=== PATIENT | female | born 1970 | race Caucasian/White ===

== ENCOUNTER 2018-06-26 08:20 | Emergency (ER) | payer BC ==
[~2018-06-26] VITALS: Ht 162.6 cm; Wt 113.6 kg
[~2018-06-26 08:20] MED LIST: AMBIEN5 MG PO; BIOTIN1 MG PO; BUSPIRONE5 MG PO; D31000 UNIT PO; FLAX SEED1000 MG PO; LISINOP/HCTZ1 TAB PO; LORTAB 5 OR; LORTAB5 PO; MULTIVITAMIN PO; OMEGA-3 FISH1000 MG PO; ROCEPHIN 2 GM2 GM IV; VANCOMYCIN IV; XANAX0.5 MG PO
[2018-06-26] MEDS ORDERED: XANAX0.5 MG PO (08:32)
[2018-06-26] MEDS ORDERED: LISINOPRIL/HYDR1 TA1 PO (08:32)
[2018-06-26 10:07] LABS: URINE BILIRUBIN - DIPSTICK NEGATIVE (NEGATIVE); URINE BLOOD DIPSTICK NEGATIVE (NEGATIVE); URINE COLOR YELLOW; URINE GLUCOSE - DIPSTICK NEGATIVE (NEGATIVE); URINE KETONE NEGATIVE (NEGATIVE); URINE LEUK ESTERASE NEGATIVE (NEGATIVE); URINE NITRITE - DIPSTICK NEGATIVE (Negative); URINE PH 6.5 (4.5-8.0); URINE PROTEIN - DIPSTICK NEGATIVE (NEG-TRACE); URINE SPECIFIC GRAVITY <=1.005; URINE UROBILINOGEN - DIPSTICK 0.2 E.U./dL (0.2)
[2018-06-26 10:08] LABS: HEMATOCRIT 43.2 % (37.0-47.0); HEMOGLOBIN 14.7 g/dl (12.0-16.0); IMMATURE GRANULOCYTES 0.4 % (0.0-5.0); MEAN CELL VOLUME 90.9 fL CALC (80.0-100.0); MEAN CORPUSCULAR HGB 30.9 pG CALC (26.0-32.0); NEUT# 10.87 thou/uL (2.00-7.15); RED BLOOD COUNT 4.75 mill/uL (4.20-5.60); RED CELL DISTRI WIDTH 12.3 % (11.5-15.5)
[2018-06-26 10:32] LABS: ALBUMIN 4.6 g/dL (3.2-5.0); ALKALINE PHOSPHATASE 93 u/l (38-126); BILIRUBIN, TOTAL 0.6 mg/dL (0.0-1.4); BUN 9 mg/dL (7-17); BUN/CREATININE RATIO 15 (12-20 (CALC)); CARBON DIOXIDE 26 mmol/l (22-30); CHLORIDE 101 mmol/l (95-108); CREATININE 0.6 mg/dL (0.5-1.0); GFR > 60 ML/MIN (>=60 (CALC)); GFR FOR AFR.AMER. > 60 ML/MIN (>=60 (CALC)); LIPASE 75 u/l (23-300); SGOT/AST 22 u/l (14-36); SODIUM 138 mmol/l (137-146); TOTAL PROTEIN 7.4 g/dL (6.3-8.2)
[2018-06-26 10:35] LABS: ANION GAP 14 (6-22 (CALC)); POTASSIUM 3.4 mmol/l (3.5-5.1)
[2018-06-26 12:05] LABS: C. DIFFICILE TOXIN A&B NEGATIVE (NEGATIVE)
[2018-06-26] MEDS ORDERED: CIPROFLOXACN500 MG PO (12:37)
[2018-06-26 12:53] VITALS: BP 126/71
== END 2018-06-26 12:53 | disposition home or self-care (01) | DRG 392 ==
LOC: ED 08:20
PROVIDERS: Family Medicine
DX: R19.7 Diarrhea, unspecified (principal); R10.32 Left lower quadrant pain; R10.12 Left upper quadrant pain
CPT/HCPCS: Q9967